=== PATIENT | male | born 1945 | race Caucasian/White ===

== ENCOUNTER → 2016-04-13 | Outpatient (CLI) | payer OTHER, MEDICARE ==
--- NOTE | 2016-04-13 12:37 | DX ---
PA and lateral chest - April 13, 2016 History: Cough, fatigue. Comparison: PA and lateral chest January 29, 2011. Findings: There is diffuse interstitial prominence with masslike consolidation in the lateral right midlung, which is less masslike on the lateral. There is no pneumothorax or visible pleural effusion. Heart size is normal. Coronary stent is present. Mild generative change is present in the spine. Impression: Interstitial prominence suggesting airways disease/bronchitis with masslike consolidation in the right midlung. While this could represent pneumonia, short-term radiographic follow up in one month is recommended to ensure resolution and exclude underlying malignancy. Findings discussed with Dr. Scott Evans today at 1226 hours.
== END ==
LOC: FIMAGING 11:57
PROVIDERS: ATTEND Internal Medicine
DX: J98.4 Other disorders of lung (principal); R05 Cough; R53.83 Other fatigue; E11.65 Type 2 diabetes mellitus with hyperglycemia; Z79.899 Other long term (current) drug therapy

== ENCOUNTER → 2016-10-16 | Outpatient (CLI) | payer OTHER, MEDICARE | LOC: BMCIMAGING 10:49 | PROVIDERS: ATTEND Internal Medicine | DX: J18.9 Pneumonia, unspecified organism (principal) ==